=== PATIENT | male | born 1970 | race Caucasian/White ===

== ENCOUNTER 2022-10-10 00:36 | Day surgery (SDC) | payer OTHER, SELFPAY ==
[2022-09-22 13:01] VITALS: BMI 37.8
[2022-10-10 06:46] VITALS: BP 134/84; PULSE 104; RESP 20; TEMP 36.1; O2SAT 99
[2022-10-10] MEDS: LACTATED RINGERS 1,000 ML 150 ML IV CONT (07:00)
[2022-10-10 07:01] LABS: Glucose Point of Care 106 mg/dl (65-105)
--- NOTE | 2022-10-10 07:08 | P.PNAN_ITS ---
Anes - Initial Pre Proc Eval Procedure: Operation Date: 10/10/22 08:00 Proposed Procedures p Screening Colonoscopy - Wojciech Chatman MD Date/Time: 10/10/22 07:08 Surgeon: Wojciech Chatman MD Pre Op Diagnosis: neoplasm screening Patient Data Age: 52 Gender: M Height: 1.73 m Weight: 110.7 kg Last Vital Signs Temp 36.1 C L 10/10/22 06:46 Pulse 104 H 10/10/22 06:46 Resp 20 10/10/22 06:46 BP 134/84 10/10/22 06:46 Pulse Ox 99 10/10/22 06:46 O2 Del Method Room Air 10/10/22 06:46 Allergies Allergy/AdvReac Type Severity Reaction Status Date / Time No Known Allergies Allergy Verified 10/10/22 06:45 Home Medications Medication Instructions Recorded Confirmed Type atorvastatin 20 mg tablet 20 mg PO DAILY 09/22/22 09/22/22 History empagliflozin 25 mg tablet 25 mg PO DAILY 09/22/22 09/22/22 History (Jardiance) hydrochlorothiazide 50 mg tablet 50 mg PO DAILY 09/22/22 09/22/22 History linagliptin 5 mg tablet (Tradjenta) 5 mg PO DAILY 09/22/22 09/22/22 History lisinopril 40 mg tablet 40 mg PO DAILY 09/22/22 09/22/22 History metformin 500 mg tablet,extended 1,000 mg PO DAILY 09/22/22 09/22/22 History release 24 hr omega-3 acid ethyl esters 1 gram 1 cap PO DAILY 09/22/22 09/22/22 History capsule Laboratory Tests 10/10/22 06:58 POC Capillary Glucose 106 mg/dl H mg/dl (65-105) Patient hx anesthesia problems: none Family hx anesthesia problems: none Results Review: All pre-operative results and documents have been reviewed as part of the pre- operative evaluation. [facility] Past Medical History Medical History (Updated 10/10/22 @ 07:09 by Bogdan Mcgovern MD) Diabetes HTN (hypertension) Obesity Social History Social History Smoking status: Never smoker Alcohol intake: never Substance use type: does not use Living arrangements: with family Spiritual care concerns: No Anes - Eval Final PreProcedure Day of Procedure 02/20/23 07:08 Patient weight: obese Heart: regular rate and rhythm Lungs: clear to auscultation and normal air movement Airway: Mallampati scale class II Neurological: alert and oriented Last oral intake: >/= 8 hours ASA classification: III Emergent: no Anesthetic plan: proceed Anesthesia type and monitoring: general GIVS Results Review: All pre-operative results and documents have been reviewed as part of the pre- operative evaluation. Informed Consent: The patient's anesthetic plan and its attendant risks and benefits were discussed with the patient/family/POA. Questions were solicited and answers provided to the satisfaction of the patient/family/POA.
--- NOTE | 2022-10-10 07:50 | PM.HPGS ---
History of Present Illness History of Present Illness Consent: Risks, benefits, and alternatives have been discussed and questions answered. Patient agrees to proceed with procedure. Chief complaint: neoplasm screening Narrative: Jose Hernandez is a 52 year old male here for first screening colonoscopy Review of Systems Constitutional: Constitutional: Denies headache(s) and Denies weakness Eyes: Eyes: Denies blurry vision ENT: Reports Normal hearing present, Denies headache(s) and Denies neck pain Cardiovascular: Cardiovascular: Denies chest pain and Denies dyspnea Respiratory: Respiratory: Denies dyspnea Gastrointestinal: Gastrointestinal: Reports no additional gastrointestinal complaints Genitourinary: Genitourinary: Denies dysuria Musculoskeletal: Musculoskeletal: Denies neck pain Integumentary/Breasts: Skin/Breast: Denies dry skin Neurologic: Reports Normal hearing present, Denies headache(s) and Denies weakness Psychiatric: Psychiatric: Denies anxiety Endocrine: Endocrine: Denies change in body appearance Hematologic/Lymphatic: Hematologic/Lymphatic: Denies easy bleeding Allergic/Immunologic: Allergic/Immunologic: Denies urticaria PMF Past Medical History Medical History (Updated 10/10/22 @ 07:51 by Wojciech Chatman MD) Colon cancer screening Diabetes HTN (hypertension) Obesity Social History Social History Smoking status: Never smoker Alcohol intake: never Substance use type: does not use Living arrangements: with family Spiritual care concerns: No Meds Home Medications and Allergies Home Medications Medication Instructions Recorded Confirmed Type atorvastatin 20 mg tablet 20 mg PO DAILY 09/22/22 09/22/22 History empagliflozin 25 mg tablet 25 mg PO DAILY 09/22/22 09/22/22 History (Jardiance) hydrochlorothiazide 50 mg tablet 50 mg PO DAILY 09/22/22 09/22/22 History linagliptin 5 mg tablet (Tradjenta) 5 mg PO DAILY 09/22/22 09/22/22 History lisinopril 40 mg tablet 40 mg PO DAILY 09/22/22 09/22/22 History metformin 500 mg tablet,extended 1,000 mg PO DAILY 09/22/22 09/22/22 History release 24 hr omega-3 acid ethyl esters 1 gram 1 cap PO DAILY 09/22/22 09/22/22 History capsule Allergies Allergy/AdvReac Type Severity Reaction Status Date / Time No Known Allergies Allergy Verified 10/10/22 06:45 Vital Signs Vital Signs - 24 hr 10/10/22 06:46 Temperature 97 F L Pulse Rate 104 H Respiratory Rate 20 Blood Pressure 134/84 Pulse Oximetry 99 Oxygen Delivery Room Air Exam Const: General: comfortable and no acute distress HENMT: Face/Nose/Sinus: Normal nares present Eyes: General: appearance normal, both eyes and all related structures Neck: Neck: no JVD Resp: Auscultation: clear to auscultation bilaterally Cardio: Rate: regular rate Rhythm: regular rhythm GI: Inspection: non-distended GI Palp: Yes Soft to palpation Skin: General skin exam: normal color Neuro: General: gait normal Speech: normal speech Extrem: General: normal to inspection Psych: Mental Status: mental status grossly normal Assessment and Plan Assessment and plan (1) Colon cancer screening: Code(s): Z12.11 - Encounter for screening for malignant neoplasm of colon Status: Acute Assessment and Plan: colonoscopy
[2022-10-10 08:09] VITALS: BP 95/58; PULSE 90; RESP 20; O2SAT 98
[2022-10-10 08:19] VITALS: BP 124/80; PULSE 85; RESP 19; O2SAT 99
[2022-10-10 08:29] VITALS: BP 115/75; PULSE 85; RESP 20; O2SAT 99
== END 2022-10-10 08:37 | disposition home or self-care (01) ==
PROVIDERS: PCP Family Medicine; Visit Provider Internal Medicine Gastroenterology
PROC: 0DJD8ZZ Inspection of Lower Intestinal Tract, Via Natural or Artificial Opening Endoscopic (ICD-10-PCS; CPT 45378; principal; 2022-10-10 08:00)
DX: Z12.11 Encounter for screening for malignant neoplasm of colon (principal); K57.30 Diverticulosis of large intestine without perforation or abscess without bleeding; K64.8 Other hemorrhoids; E11.9 Type 2 diabetes mellitus without complications; I10 Essential (primary) hypertension; E66.9 Obesity, unspecified; Z68.37 Body mass index [BMI] 37.0-37.9, adult; Z79.84 Long term (current) use of oral hypoglycemic drugs
CPT/HCPCS: 45378; 82948; J2704; J7120

== ENCOUNTER 2024-03-06 10:44 | Outpatient (CLI) | payer OTHER, SELFPAY ==
--- NOTE | ~2024-03-06 | US_ITS ---
EXAMINATION: US soft tissue LE RT DATE: 03/06/2024 11:17 INDICATION: Localized swelling mass or lump at the medial right lower leg TECHNIQUE: Multiple grayscale and Doppler ultrasound images of the region of concern at the medial ri t lower leg were obtained. COMPARISON: None FINDINGS: Very hypoechoic complex nonloculated fluid collection with irregular margins extending between the lo bules of hypoechoic subcutaneous fat within a 5.4 x 5.9 x 1.1 cm lenticular region of the subcutaneou s fat at the region of concern. There is some vessels identified on color Doppler extending through t he surrounding and intervening fat. No evident flow within the fluid on color Doppler. IMPRESSION: 1. Complex fluid collection with irregular margins with any 5.4 x 5.9 x 1.1 cm region of subcutaneous fat at the region of concern with appearance most suggestive of a hematoma. In the appropriate clini rachael setting the differential would include phlegmonous change progressing towards more organized absc ess. Reviewed, dictated and finalized at location A. IMPRESSION: 1. Complex fluid collection with irregular margins with any 5.4 x 5.9 x 1.1 cm region of subcutaneous fat at the region of concern with appearance most sugges tive of a hematoma. In the appropriate clinical setting the differential would include phlegmonous change progressing towards more organized abscess.
--- NOTE | ~2024-03-06 | XR_ITS ---
XR tibia fibula RT 2V Ordering provider: Medhat Ballard, History: . LOCALIZED SWELLING, MASS AND LUMP . Comparison: None. FINDINGS: BONES: No acute fracture or dislocation. JOINT SPACES: Normal. SOFT TISSUES: Normal. IMPRESSION: No acute osseous abnormality right leg. Reviewed, dictated and finalized at location A.
== END 2024-03-06 10:45 ==
LOC: MICIMG 10:48
PROVIDERS: PCP Family Medicine; Visit Provider Family Medicine
DX: R22.41 Localized swelling, mass and lump, right lower limb (principal)
CPT/HCPCS: 73590; 76882